=== PATIENT | female | born 1950 | race Caucasian/White ===

== ENCOUNTER → 2017-03-10 | Outpatient (CLI) | payer MEDICARE, OTHER ==
[2011-09-08 14:53] VITALS: BP 131/85
[~2017-03-10] MED LIST: DUO-KAPS1 CAP PO; ST. JOSEPH81 M2 PO
== END ==
LOC: LAB 15:48
DX: R42 Dizziness and giddiness (principal); R07.89 Other chest pain

== ENCOUNTER → 2019-06-08 | Outpatient (CLI) | payer MEDICARE, OTHER ==
[2011-09-08 14:53] VITALS: BP 131/85
== END ==
LOC: MAMMO 13:45
DX: Z13.820 Encounter for screening for osteoporosis (principal); M81.0 Age-related osteoporosis without current pathological fracture

== ENCOUNTER → 2021-06-05 | Outpatient (CLI) | payer MEDICARE ==
[2021-06-05 10:46] LABS: BASO # 0.06 K/mm3 (0.02-0.10); EOS # 0.13 K/mm3 (0.04-0.40); EOS % 1.8 % (1.0-5.0); HEMOGLOBIN 14.1 g/dL (12.5-16.0); MEAN CELL VOLUME 96 fl (78-100); MEAN CORPUSCULAR HEMOGLOBIN 31 pg (27-31); MEAN CORPUSCULAR HGB CONC 33 g/dL (33-37); MEAN PLATELET VOLUME 9.4 fl (7.4-10.4); MONO # 0.52 K/mm3 (0.20-0.80); NEU # 4.22 K/mm3 (1.40-6.50); PLATELET COUNT 322 K/mm3 (130-400); RED BLOOD COUNT 4.49 M/mm3 (4.10-5.30); WHITE BLOOD COUNT 7.1 K/mm3 (4.8-10.8)
[2021-06-05 10:59] LABS: ALBUMIN 4.3 g/dL (3.4-4.8); POTASSIUM 4.3 mmol/L (3.5-5.1)
[2021-06-05 11:00] LABS: CALCIUM 10.6 mg/dL (8.3-10.5)
[2021-06-05 11:02] LABS: TOTAL PROTEIN 7.5 g/dL (6.2-8.1)
[2021-06-05 11:03] LABS: TOTAL BILIRUBIN 0.6 mg/dL (0.2-1.2)
== END ==
LOC: LAB 10:27
PROVIDERS: Family Medicine
DX: Z00.00 Encounter for general adult medical examination without abnormal findings (principal); E78.5 Hyperlipidemia, unspecified; E55.9 Vitamin D deficiency, unspecified

== ENCOUNTER → 2021-06-12 | Outpatient (CLI) | payer MEDICARE | LOC: MAMMO 14:18 | DX: M81.0 Age-related osteoporosis without current pathological fracture (principal) ==

== ENCOUNTER 2024-01-28 10:15 | Outpatient (RCR) | payer MEDICARE | END 2024-02-20 | disposition home or self-care (01) | LOC: PT | DX: Z96.641 Presence of right artificial hip joint (principal) ==